=== PATIENT | female | born 1990 | race African-American/Black ===

== ENCOUNTER 2025-06-08 06:32 | Emergency (ER) | payer SELFPAY ==
[~2025-06-08] VITALS: Ht 177.8 cm; Wt 100.0 kg
[2025-06-08 06:44] VITALS: O2SAT 98
[2025-06-08] MEDS ORDERED: LIDO700A30 TP (07:13)
[2025-06-08] MEDS ORDERED: LIDOCAINE 5% PATCH TOP SCH (07:15)
[2025-06-08 07:29] VITALS: BP 115/73; PULSE 63; RESP 18; TEMP 36.8; O2SAT 99
== END 2025-06-08 07:35 | disposition home or self-care (01) ==
LOC: ER 06:48
DX: M54.50 Low back pain, unspecified (principal)
CPT/HCPCS: 99282